=== PATIENT | male | born 1955 | race Caucasian/White ===

== ENCOUNTER 2018-10-08 10:39 | Day surgery (SDC) | payer MEDICAID ==
[2018-10-01 13:56] VITALS: BP 154/100
[~2018-10-08] VITALS: Ht 172.7 cm; Wt 104.5 kg
[~2018-10-08 10:39] MED LIST: AMIT10TA PO; CARB15DR3 EACHEYE; CHOL2000 PO; CYCL-259 PO; FLUT9.9S NAS; GABA800T2 PO; IPRA12.9 INH; NAPR-685 PO; TIZA4CAP PO
[2018-10-08] MEDS ORDERED: LACTATED RINGERS 1,000 ML IV SCH (11:18)
[2018-10-08] MEDS ORDERED: MIDAZOLAM 1 MG/ML, 2ML ONE (13:19)
[2018-10-08] MEDS ORDERED: FENTANYL PF 250 MCG/5ML ONE (13:21)
[2018-10-08] MEDS ORDERED: DEXMEDETOMIDINE 200 MCG/2 ML ONE (13:23)
[2018-10-08] MEDS ORDERED: NEOSTIGMINE 1 MG/ML, 10ML ONE (13:23)
[2018-10-08] MEDS ORDERED: ONDANSETRON 2MG/ML, 2ML ONE (13:23)
[2018-10-08] MEDS ORDERED: ROCURONIUM 10MG/ML,5ML ONE (13:44)
[2018-10-08] MEDS ORDERED: CIPROFLOXACIN/PMX 400MG/200ML 200 ML ONE (13:44)
[2018-10-08] MEDS ORDERED: DEXAMETHASONE 4 MG/ML, 1ML ONE (13:44)
[2018-10-08] MEDS ORDERED: LIDOCAINE 2% 100MG/5ML SYRINGE ONE (13:44)
[2018-10-08] MEDS ORDERED: PROPOFOL 10 MG/ML, 20ML ONE (13:44)
[2018-10-08] MEDS ORDERED: ALBUTEROL/IPRATROPIUM 2.5MG/0.5MG, 3 ML NPPB PRN (14:00)
[2018-10-08] MEDS ORDERED: PROMETHAZINE 25 MG/ML, 1ML IV PRN (14:00)
[2018-10-08] MEDS ORDERED: HYDROmorphone 1 MG/ML, 1ML IV PRN (14:00)
[2018-10-08] MEDS ORDERED: LABETALOL 5MG/ML, 20ML IV PRN (14:00)
[2018-10-08] MEDS ORDERED: HALOPERIDOL 5 MG/ML IV PRN (14:00)
[2018-10-08] MEDS ORDERED: hydrALAzine 20 MG/ML, 1ML IV PRN (14:00)
[2018-10-08] MEDS ORDERED: OXYcodone 5 MG/5 ML ORAL.SOL UDC PO PRN (14:00)
[2018-10-08] MEDS ORDERED: ACETAMINOPHEN 325 MG TABLET PO PRN (14:00)
[2018-10-08] MEDS ORDERED: FENTANYL PF 100 MCG/2ML IV PRN (14:00)
[2018-10-08] MEDS ORDERED: MEPERIDINE/PF 25MG/0.5ML IVPush PRN (14:00)
[2018-10-08] MEDS ORDERED: LORazepam 2 MG/ML, 1ML IVPush PRN (14:00)
== END 2018-10-08 17:10 | disposition home or self-care (01) ==
LOC: OUT 10:39
PROVIDERS: ATTEND Urology
DX: N20.0 Calculus of kidney (principal); I25.2 Old myocardial infarction
CPT/HCPCS: 52356; 74018; 76001; C1758; C1769; C2617; J0744; J1100; J2250; J2405; J2704; J2710; J3010; J7120

== ENCOUNTER → 2020-06-03 | Outpatient (CLI) | payer MEDICAID ==
[~2020-06-03] MED LIST changes: +ACET-1600 PO; -GABA800T2 PO; +GABA800T5 PO; +LISI-167 PO
[2020-06-03 14:41] LABS: BASOPHILS # (AUTO) 0.02 x10^3/uL (0-0.1); BASOPHILS % (AUTO) 0 % (0-1); EOSINOPHILS # (AUTO) 0.15 x10^3/uL (0-0.4); EOSINOPHILS % (AUTO) 2 % (1-7); LYMPHOCYTES # (AUTO) 2.76 x10^3/uL (1-3.4); LYMPHOCYTES % (AUTO) 38 % (22-44); MD NO; MEAN CORPUSCULAR HEMOGLOBIN 31.5 pg (27.5-34.5); MEAN CORPUSCULAR VOLUME 95.4 fL (81-97); MEAN PLATELET VOLUME 8.6 fL (7.4-10.4); MONOCYTES # (AUTO) 0.57 x10^3/uL (0.2-0.8); MONOCYTES % (AUTO) 8 % (2-9); NEUTROPHILS # (AUTO) 3.86 x10^3/uL (1.8-6.8); NEUTROPHILS % (AUTO) 52 % (42-75); PLATELET COUNT 210 x10^3/uL (130-400); RED BLOOD COUNT 5.13 x10^6/uL (4.38-5.82); RED CELL DISTRIBUTION WIDTH 13.9 % (9.4-14.8)
[2020-06-03 14:50] LABS: ALANINE AMINOTRANSFERASE 54 U/L (12-78); ALBUMIN 4.7 g/dL (3.4-5.0); ANION GAP 4 mmol/L (5-15); CALCIUM 9.6 mg/dL (8.5-10.1); CHLORIDE 110 mmol/L (98-107); CREATININE 1.02 mg/dL (0.7-1.3)
[2020-06-03 14:51] LABS: ALKALINE PHOSPHATASE 81 U/L (45-117)
== END | disposition home or self-care (01) ==
LOC: STAR 13:24
PROVIDERS: ATTEND Orthopaedic Surgery
DX: Z01.818 Encounter for other preprocedural examination (principal); M25.551 Pain in right hip
CPT/HCPCS: 36415; 80053; 85025; 87081; 87147; 93005

== ENCOUNTER 2020-06-08 05:52 | Observation (INO) | payer MEDICAID ==
[~2020-06-08] VITALS: Ht 172.7 cm; Wt 112.9 kg
[2020-06-08] MEDS ORDERED: KETOROLAC 60 MG/2 ML ONE (06:10)
[2020-06-08] MEDS ORDERED: TRANEXAMIC ACID 100 MG/ML, 10ML ONE (06:11)
[2020-06-08] MEDS ORDERED: ROPivacaine/PF 0.2%, 10 ML ONE (06:11)
[2020-06-08] MEDS ORDERED: SODIUM CHLORIDE 0.9% 50 ML ONE (06:12)
[2020-06-08] MEDS ORDERED: ROPIvacaine/PF 0.2%, 20 ML ONE (06:12)
[2020-06-08] MEDS ORDERED: EPINEPHRINE 1 MG/ML, 1ML ONE (06:12)
[2020-06-08] MEDS ORDERED: morphine SULFATE/PF 1 MG/ML, 10ML ONE (06:12)
[2020-06-08] MEDS ORDERED: VANCOMYCIN 1,000 MG ONE (06:12)
[2020-06-08] MEDS ORDERED: LACTATED RINGERS 1,000 ML IV SCH (06:20)
[2020-06-08 06:23] VITALS: BP 123/70
[2020-06-08] MEDS ORDERED: ROSU5TAB PO (06:28)
[2020-06-08] MEDS ORDERED: CHLORHEXIDINE 15 ML UDC MM ONE (06:30)
[2020-06-08] MEDS ORDERED: ACETAMINOPHEN 500 MG TABLET PO ONE (06:30)
[2020-06-08] MEDS ORDERED: MIDAZOLAM 1 MG/ML, 2ML ONE (06:51)
[2020-06-08] MEDS ORDERED: FENTANYL PF 250 MCG/5ML ONE (06:53)
[2020-06-08] MEDS ORDERED: PHENYLEPHRINE 10 MG/ML ONE (07:05)
[2020-06-08] MEDS ORDERED: MEPERIDINE/PF 25MG/0.5ML IVPush PRN (08:00)
[2020-06-08] MEDS ORDERED: OXYcodone 5 MG/5 ML ORAL.SOL UDC PO PRN (08:00)
[2020-06-08] MEDS ORDERED: LABETALOL 5MG/ML, 20ML IV PRN (08:00)
[2020-06-08] MEDS ORDERED: ALBUTEROL SULFATE 2.5 MG/3 ML NPPB PRN (08:00)
[2020-06-08] MEDS ORDERED: HYDROmorphone 1 MG/ML, 1ML INJ IVPush PRN (08:00)
[2020-06-08] MEDS ORDERED: PROMETHAZINE 25 MG/ML, 1ML IVPush PRN (08:00)
[2020-06-08] MEDS ORDERED: hydrALAzine 20 MG/ML, 1ML IV PRN (08:00)
[2020-06-08] MEDS ORDERED: LORazepam 2 MG/ML, 1ML IVPush PRN (08:00)
[2020-06-08] MEDS ORDERED: GLYCOPYRROLATE 0.2MG/1ML, 5ML ONE (08:09)
[2020-06-08] MEDS ORDERED: ONDANSETRON 2MG/ML, 2ML ONE (08:09)
[2020-06-08] MEDS ORDERED: CEFAZOLIN 1,000 MG ONE (08:09)
[2020-06-08] MEDS ORDERED: NEOSTIGMINE 1 MG/ML, 10ML ONE (08:09)
[2020-06-08] MEDS ORDERED: ROCURONIUM 10MG/ML,5ML ONE (08:09)
[2020-06-08] MEDS ORDERED: SUCCINYLCHOLINE 20 MG/ML, 10ML ONE (08:09)
[2020-06-08] MEDS ORDERED: DEXAMETHASONE 4 MG/ML, 1ML ONE (08:09)
[2020-06-08] MEDS ORDERED: PROPOFOL 10 MG/ML, 20ML ONE (08:09)
[2020-06-08] MEDS ORDERED: LIDOCAINE-MPF 2% ,5ML ONE (08:09)
[2020-06-08] MEDS ORDERED: FENTANYL PF 100 MCG/2ML ONE (09:06)
[2020-06-08] MEDS ORDERED: MEPERIDINE/PF 25MG/ML,1ML ONE (09:06)
[2020-06-08] MEDS ORDERED: OXYcodone 5 MG/5 ML ORAL.SOL UDC ONE (09:08)
[2020-06-08] MEDS: FENTANYL PF 100 MCG/2ML IV PRN ×2 (09:31→09:41)
[2020-06-08] MEDS ORDERED: HYDROcodone/APAP 7.5-325MG/15ML UDC PO PRN (10:30)
[2020-06-08] MEDS ORDERED: ACETAMINOPHEN 325 MG TABLET PO PRN (10:30)
[2020-06-08] MEDS ORDERED: ONDANSETRON 2MG/ML, 2ML IVPush PRN (10:30)
[2020-06-08] MEDS: GABAPENTIN 400 MG CAPSULE PO SCH ×3 (11:20→20:21)
[2020-06-08] MEDS: POTASSIUM CHLORIDE 10 MEQ in D5%-0.45% NACL 1,000 ML IV SCH (11:20)
[2020-06-08] MEDS: TIZANIDINE 4MG TABLET PO SCH ×3 (11:21→20:22)
[2020-06-08 13:02] VITALS: BP 115/78
[2020-06-08] MEDS: ACETAMINOPHEN 500 MG TABLET PO SCH ×2 (15:36→20:22)
[2020-06-08] MEDS: CEFAZOLIN PMX 1GM/50ML 50 ML IVPB SCH ×2 (15:36→23:43)
[2020-06-08] MEDS ORDERED: TIZANIDINE 4MG TABLET PO SCH (16:00)
[2020-06-08] MEDS ORDERED: GABAPENTIN 400 MG CAPSULE PO SCH (16:00)
[2020-06-08 18:41] VITALS: BP 95/61
[2020-06-08] MEDS: NAPROXEN 500 MG TABLET PO SCH (20:21)
[2020-06-08] MEDS: IPRATROPIUM HFA 17 MCG/INH INH SCH (20:22)
[2020-06-08] MEDS: ARTIFICIAL TEARS 15 DROP/ML BOTTLE EACHEYE SCH (20:22)
[2020-06-08] MEDS ORDERED: AMITRIPTYLINE 10 MG TABLET PO SCH (21:00)
[2020-06-08] MEDS ORDERED: ATORVASTATIN 20 MG TABLET PO SCH (21:00)
[2020-06-08 23:45] VITALS: BP 100/67
[2020-06-09 04:33] VITALS: BP 103/66
[2020-06-09] MEDS: POTASSIUM CHLORIDE 10 MEQ in D5%-0.45% NACL 1,000 ML IV SCH (05:12)
[2020-06-09] MEDS ORDERED: ASPIRIN 81 MG TABLET EC PO SCH (06:00)
[2020-06-09 08:11] VITALS: BP 98/62
[2020-06-09] MEDS: ARTIFICIAL TEARS 15 DROP/ML BOTTLE EACHEYE SCH (08:20)
[2020-06-09] MEDS: GABAPENTIN 400 MG CAPSULE PO SCH (08:20)
[2020-06-09] MEDS: IPRATROPIUM HFA 17 MCG/INH INH SCH (08:20)
[2020-06-09] MEDS: NAPROXEN 500 MG TABLET PO SCH (08:20)
[2020-06-09] MEDS: TIZANIDINE 4MG TABLET PO SCH (08:21)
[2020-06-09] MEDS: ACETAMINOPHEN 500 MG TABLET PO SCH (08:21)
[2020-06-09] MEDS ORDERED: FLUTICASONE NASAL SPRAY 16GM NAS SCH (09:00)
[2020-06-09] MEDS ORDERED: LISINOPRIL 10 MG TABLET PO SCH (09:00)
[2020-06-09] MEDS ORDERED: CHOLECALCIFEROL 1,000 UNIT TABLET PO SCH (09:00)
== END 2020-06-09 10:49 | disposition home or self-care (01) ==
LOC: OUT 05:52 → EDSTATUS 07:00 → 5SO 10:03 → 4NE 16:39 → OUT 21:58 → 4NE 21:59 → DCLOUNGE 06-09 10:32
PROVIDERS: ADMIT Orthopaedic Surgery; ATTEND Orthopaedic Surgery
DX: Z03.818 Encounter for observation for suspected exposure to other biological agents ruled out (principal); M16.11 Unilateral primary osteoarthritis, right hip; I10 Essential (primary) hypertension; J44.9 Chronic obstructive pulmonary disease, unspecified; E66.9 Obesity, unspecified; Z79.899 Other long term (current) drug therapy; Z87.891 Personal history of nicotine dependence; Z68.35 Body mass index [BMI] 35.0-35.9, adult; Z96.641 Presence of right artificial hip joint
CPT/HCPCS: 27130; 36415; 86850; 86900; 87635; 96365; 96366; 97162; C1713; C1776; G0378; J0171; J0330; J0690; J1100; J1885; J2175; J2250; J2274; J2370; J2405; J2704; J2710; J2795; J3010; J3370; J3480; J3490; J7120

== ENCOUNTER 2021-01-20 08:35 | Outpatient (CLI) | payer MEDICARE ==
[~2021-01-20 08:35] MED LIST changes: -CYCL-259 PO; +CYCL10TA2 PO; +ROSU5TAB PO
[2021-01-20 09:04] LABS: ALANINE AMINOTRANSFERASE 53 U/L (12-78); ALBUMIN 4.1 g/dL (3.4-5.0); ANION GAP 8 mmol/L (5-15); CALCIUM 8.9 mg/dL (8.5-10.1); CHLORIDE 110 mmol/L (98-107); CREATININE 1.12 mg/dL (0.7-1.3)
[2021-01-20 09:06] LABS: ALKALINE PHOSPHATASE 86 U/L (45-117); BILIRUBIN,TOTAL 0.7 mg/dL (0.2-1.0); TOTAL PROTEIN 7.6 g/dL (6.4-8.2)
== END 2021-01-20 23:59 | disposition home or self-care (01) ==
LOC: LAB 08:35
PROVIDERS: ATTEND Student in an Organized Health Care Education/Training Program
DX: R25.2 Cramp and spasm (principal)
CPT/HCPCS: 36415; 80053

== ENCOUNTER 2021-06-22 11:22 | Outpatient (CLI) | payer MEDICARE | END 2021-06-22 23:59 | disposition home or self-care (01) | LOC: LAB 11:22 → RAD 23:59 | PROVIDERS: ATTEND Urology | DX: Z12.5 Encounter for screening for malignant neoplasm of prostate (principal); N20.0 Calculus of kidney | CPT/HCPCS: 36415; 74018; 84153; G0103 ==

== ENCOUNTER 2021-07-08 22:18 | Emergency (ER) | payer MEDICARE ==
[~2021-07-08] VITALS: Ht 172.7 cm; Wt 115.0 kg
--- NOTE | 2021-07-08 22:29 | NUR ---
PT C/O OF LEFT HIP INCISION BLEEDING AFTER A TOTAL HIP REPLACEMENT. SURGICAL INCISION APPEARS 80% SATURATED. pt deines injury or trauma to site. pt coming from home attached to monitors, vss, nadn, changed into gown, given blankets bed in low, rails engaged, call light on lap.
[2021-07-08 23:11] VITALS: BP 97/53
--- NOTE | 2021-07-08 23:27 | NUR ---
Patient/Caregiver given discharge instructions and they have confirmed that they understand the instructions. Patient ambulatory with steady gait WITH FWW. NAD, all questions answered appropriately, denies additional needs at this time. No personal belongings left in room after discharge.
== END 2021-07-08 23:29 | disposition home or self-care (01) ==
LOC: ED 23:24
DX: S71.012A Laceration without foreign body, left hip, initial encounter (principal); L76.22 Postprocedural hemorrhage of skin and subcutaneous tissue following other procedure; Z87.891 Personal history of nicotine dependence; X58.XXXA Exposure to other specified factors, initial encounter; Y93.89 Activity, other specified; Y92.89 Other specified places as the place of occurrence of the external cause; Y99.8 Other external cause status
CPT/HCPCS: 12002; 99283